=== PATIENT | male | born 2005 | race Caucasian/White ===

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

== ENCOUNTER → 2024-06-21 | Outpatient (CLI) | payer BC ==
[2024-06-21 15:11] LABS: BASOPHILS % 0.5 % (0.0-2.0); EOSINOPHILS % 0.2 % (0.0-5.0); HEMATOCRIT. 40.8 % (42.0-52.0); HEMOGLOBIN. 13.8 g/dL (14.0-18.0); LYMPHOCYTES % 31.1 % (20.0-50.0); MEAN CORPUSCULAR HGB CONC 33.7 g/dL (31.0-37.0); MEAN PLATELET VOLUME 9.4 fl (7.4-10.4); MONOCYTES % 6.3 % (2.0-8.0); NEUTROPHILS % 61.9 % (40.0-76.0); PLATELET 205 x1000/uL (130-400); RED BLOOD CELL COUNT 4.44 mill/uL (4.7-6.1); WHITE BLOOD COUNT 7.4 x1000/uL (4.5-11.0)
[2024-06-21 15:16] LABS: CHLORIDE 102 mEq/L (98-107); POTASSIUM 3.9 mEq/L (3.5-5.1); SODIUM 138 mEq/L (136-145)
[2024-06-21 15:17] LABS: CALCIUM 9.7 mg/dL (8.7-10.4); CARBON DIOXIDE 30 mEq/L (21-32)
[2024-06-21 15:22] LABS: CREATININE 0.9 mg/dL (0.6-1.3); GLUCOSE 72 mg/dL (70-105); UREA NITROGEN BLOOD 10 mg/dL (9-23)
[2024-06-21 15:23] LABS: ALANINE AMINOTRANSFERASE 20 IU/L (10-49); ALBUMIN 4.7 g/dL (3.2-4.8); ASPARTATE AMINOTRANSFERASE 26 IU/L (<34)
[2024-06-21 15:24] LABS: BILIRUBIN TOTAL 1.2 mg/dL (0.1-1.0); PROTEIN TOTAL 7.6 g/dL (6.0-8.3)
[2024-06-21 16:40] LABS: SICKLE CELL SCREEN NEGATIVE (NEGATIVE)
== END | disposition home or self-care (01) ==
LOC: LAB 07:11
PROVIDERS: ATTEND Internal Medicine
DX: R53.83 Other fatigue (principal)
CPT/HCPCS: 36415; 80053; 85025; 85660

== ENCOUNTER 2024-12-07 23:12 | Emergency (ER) | payer BC ==
[~2024-12-07] VITALS: Ht 167.6 cm; Wt 69.0 kg
[2024-12-07 23:26] VITALS: BP 126/76; PULSE 78; RESP 16; TEMP 98.2; O2SAT 100
[2024-12-08 00:28] LABS: CLARITY URINE CLEAR (CLEAR); COLOR URINE YELLOW (YELLOW); GLUCOSE URINE NEGATIVE (NEGATIVE); KETONES URINE NEGATIVE (NEGATIVE); LEUKOCYTE ESTERASE URINE 1+ (NEGATIVE); NITRITE URINE NEGATIVE (NEGATIVE); OCCULT BLOOD URINE NEGATIVE (NEGATIVE); PROTEIN URINE NEGATIVE (NEGATIVE); SPECIFIC GRAVITY URINE 1.016 (1.005-1.030); UROBILINOGEN URINE 0.2 E.U./dL (0.2-1.0)
[2024-12-08] MEDS: CEFTRIAXONE SODIUM 500MG VIAL IM ONE (00:58)
[2024-12-08] MEDS ORDERED: CEPH500T MT (01:26)
[2024-12-08] MEDS ORDERED: DOXY100T2 MT (01:27)
[2024-12-08 02:00] LABS: SQUAMOUS EPITHELIAL CELL URINE NONE SEEN /lpf (RARE/1+)
[2024-12-08 02:02] LABS: BACTERIA URINE TRACE; RBC URINE 0-2 /hpf (0-2)
[2024-12-09 14:12] LABS: CHLAMYDIA TRACHOMATIS NAA Positive (Negative); NEISSERIA GONORRHOEAE NAA Negative (Negative)
== END 2024-12-08 01:38 | disposition home or self-care (01) ==
LOC: ER 23:12
DX: N39.0 Urinary tract infection, site not specified (principal); Z11.3 Encounter for screening for infections with a predominantly sexual mode of transmission
CPT/HCPCS: 99283; 87491; 87591; 81003; 96372; J0696

== ENCOUNTER 2025-05-20 04:04 | Emergency (ER) | payer BC ==
[~2025-05-20] VITALS: Ht 172.7 cm; Wt 64.0 kg
[~2025-05-20 04:04] MED LIST changes: +DOXY100T2 MT
[2025-05-20 04:10] VITALS: O2SAT 100
[2025-05-20] MEDS: ONDANSETRON HCL 4MG/2ML INJ IV STA (04:34)
[2025-05-20 04:54] LABS: HEMATOCRIT. 36.8 % (42.0-52.0); HEMOGLOBIN. 12.5 g/dL (14.0-18.0); MEAN PLATELET VOLUME 9.4 fl (7.4-10.4); PLATELET 145 x1000/uL (130-400); RED BLOOD CELL COUNT 4.17 mill/uL (4.7-6.1); RED CELL DISTRIBUTION WIDTH 13.1 % (11.6-14.6)
[2025-05-20 05:09] LABS: CREATININE 0.8 mg/dL (0.6-1.3)
[2025-05-20 05:10] LABS: INR 1.0; UREA NITROGEN BLOOD 10 mg/dL (9-23)
[2025-05-20 05:11] LABS: ASPARTATE AMINOTRANSFERASE 25 IU/L (<34)
[2025-05-20 05:12] LABS: BILIRUBIN DIRECT 0.3 mg/dL (<=3.0); BILIRUBIN TOTAL 1.0 mg/dL (0.1-1.0); PROTEIN TOTAL 7.0 g/dL (6.0-8.3)
[2025-05-20] MEDS: SODIUM CHLORIDE 0.9% 1,000 ML IV ONE (05:40)
[2025-05-20] MEDS: ONDANSETRON HCL 4MG/2ML INJ IV ONE (05:40)
[2025-05-20 05:46] LABS: LYMPHOCYTES % MANUAL 3.0 % (20.0-50.0); MONOCYTES % MANUAL 5.0 % (2.0-8.0); NEUTROPHILS % MANUAL 92.0 % (45.0-75.0); PLATELET ESTIMATE NORMAL
[2025-05-20] MEDS ORDERED: ONDA-239 PO (07:24)
[2025-05-20] MEDS: ACETAMINOPHEN 325MG TABLET PO ONE (08:20)
[2025-05-20 08:28] VITALS: BP 123/68; PULSE 85; RESP 14; TEMP 36.9; O2SAT 100
== END 2025-05-20 08:34 | disposition home or self-care (01) ==
LOC: ER 04:04
DX: R19.7 Diarrhea, unspecified (principal); R11.2 Nausea with vomiting, unspecified; R53.1 Weakness; R10.9 Unspecified abdominal pain; R51.9 Headache, unspecified; Z79.899 Other long term (current) drug therapy
CPT/HCPCS: 80076; 80048; 83690; 85025; 85610; 36415; 70450; 96361; 96374; 99285; J2405; J7030; Z7610 ×3